=== PATIENT | male | born 1985 | race African-American/Black ===

== ENCOUNTER 2023-03-28 16:40 | Emergency (ER) | payer SELFPAY ==
[2023-03-28] MEDS ORDERED: Lidocaine 2% Viscous Solution 15 ML UD MUCMEM ONE (16:55)
== END 2023-03-28 17:05 | disposition home or self-care (01) ==
LOC: DL.ED 16:40
DX: S02.5XXA Fracture of tooth (traumatic), initial encounter for closed fracture (principal); K04.7 Periapical abscess without sinus; Z72.0 Tobacco use
CPT/HCPCS: 99282; A9270